=== PATIENT | male | born 1985 | race Caucasian/White ===

== ENCOUNTER → 2017-05-01 09:29 | Outpatient (CLI) | payer BC | END | disposition home or self-care (01) | LOC: D.MRI 09:29 | DX: M25.511 Pain in right shoulder (principal) ==

== ENCOUNTER → 2017-05-22 13:36 | Outpatient (CLI) | payer BC | END | disposition home or self-care (01) | LOC: D.RAD 05-18 08:30 → D.MRI 05-18 09:30 → D.RAD 13:36 | DX: M25.511 Pain in right shoulder (principal) ==

== ENCOUNTER 2017-12-24 07:35 | Day surgery (SDC) | payer BC ==
[~2017-12-24] VITALS: Ht 172.7 cm; Wt 66.2 kg
--- NOTE | ~2017-12-24 | OP ---
PATIENT NAME: VICTOR HUGO PEDERSON MEDICAL RECORD: [id number] LOCATION:[facility] ADMISSION DATE: SURGEON: SETH MCCRARY MD DATE OF OPERATION: 12/24/2017 PREOPERATIVE DIAGNOSIS: Pilonidal cyst. POSTOPERATIVE DIAGNOSIS: Pilonidal cyst. PROCEDURE: Pilonidal cystectomy. SURGEON: Seth Mccrary MD REPORT OF PROCEDURE: The patient was placed in the jackknife prone position. The gluteal region was prepped and draped in sterile fashion. There was a small area of fluctuance present, which was penetrated just to the right of midline in the gluteal crease. When we penetrated this, there was no spillage of fluid, but as I probed the area, there was noted to be a pocket in the subcutaneous space that was projecting towards the midline. I ended up opening up the skin over top of the pocket to completely expose it and at this point, we could see there was a cystic cavity present. I probed to see if there are any other extensions anywhere, but I could not find any. We then completely excised the cystic cavity down to the normal fatty tissue and down towards the tip of the coccyx. Once we had this completely removed and we irrigated out the wound and assured there was no sign of any bleeding, we then packed the wound with iodoform gauze and dressed it with 4 x 4. COMPLICATIONS: None. CONDITION: Stable. ANESTHESIA: General endotracheal and local. BLOOD LOSS: Minimal. TRANSINT:[id number] Voice Confirmation ID: [id number] DOCUMENT ID: [id number] SETH MCCRARY MD at [id number] CC: CATRACHO STAKRS DO [id number] DICTATION DATE: 12/24/17 1108 DIRECTOR COMM[employer]ITY ORGANIZATION: 12/24/17 1113 [facility] 12/24/17 [id number] [place] [address]
[~2017-12-24 07:35] MED LIST: ADDERALL 20 MG20 M1 PO; AZELASTINE137 MCG/0. NASAL
[2017-12-24 08:07] LABS: BASOPHILS 0.5 % (0-2); EOSINOPHILS 8.8 % (0-7); HEMATOCRIT 43.3 % (42.0-54.0); HEMOGLOBIN 15.3 g/dL (13.5-17.5); IMMATURE GRANULOCYTES 0.2 % (0-5); LYMPHOCYTES 28.4 % (15-50); MCH 31.3 pg (26.0-34.0); MCHC 35.3 g/dL (31.0-37.0); MCV 88.5 fL (80.0-100.0); MEAN PLATELET VOLUME 9.2 fL (7.4-10.4); MONOCYTES 9.1 % (2-11); PLATELET COUNT 260 10x3/uL (130-400); RBC 4.89 10x6/uL (4.20-6.10); RDW 12.9 % (11.5-14.5); WBC 5.8 10x3/uL (4.8-10.8)
[2017-12-24 08:16] LABS: CALC OSMOLALITY 267 mosm/kg (275-300); CALCIUM 8.8 mg/dL (8.5-10.1); CARBON DIOXIDE 29.3 mmol/L (21.0-32.0); CHLORIDE - SERUM 101 mmol/L (98-107); CREATININE - SERUM 1.1 mg/dL (0.6-1.3); GLUCOSE 96 mg/dL (74-106); POTASSIUM - SERUM 4.4 mmol/L (3.5-5.1); SODIUM 133 mmol/L (136-145); UREA NITROGEN 17 mg/dL (7-18); eGFR NON AFRICAN AMERICAN 83 mL/min (90-120)
[2017-12-24 08:29] VITALS: BP 120/77; Ht 172.7 cm; Wt 66.2 kg
[2017-12-24] MEDS ORDERED: HYDROCODONE-APA1 TAB PO (11:05)
== END 2017-12-24 13:55 | disposition home or self-care (01) ==
LOC: D.OPS 07:35
PROVIDERS: Surgery
DX: L05.91 Pilonidal cyst without abscess (principal); Z01.812 Encounter for preprocedural laboratory examination